=== PATIENT | female | born 1950 | race Caucasian/White ===

== ENCOUNTER → 2016-08-07 | Outpatient (CLI) | payer OTHER ==
[~2016-08-07] MED LIST: ALBUTEROL17 GM INH; AMBIEN PO; AMOXICILLIN PO; CELEXA PO; CELEXA20 MG PO; DYAZIDE 37.5/251 CAP PO; LASIX PO; LISINOPRIL PO; LISINOPRIL20 MG PO; LORTAB 7.5-5001 TAB PO; NO MEDICATIONS; ORUDIS75 M1 PO; PREDNISONE PO; TEMAZEPAM PO; ZYLOPRIM PO
--- NOTE | ~2016-08-07 | MY11 ---
[facility] A Service of [facility] RADIOLOGY TEXT RESULTS PATIENT: INGRID CURRY LOCATION: [facility] : 52 UNIT #: [id number] AGE: [address]: NUNO CONLEY MD (INT MED) SEX: F ORDER DR: [id number] [facility] [address] [place], [place] [address] [id number] O MR#: [id number] Acc #: [id number] NAME: INGRID CURRY : 1950 SEX: F STUDY DATE/TIME: 08/07/2016 12:50 UNIT: [facility] ROOM: STUDY DESCRIPTION: MY Mammogram Screening Dig Miles Attending Physician: Nuno Conley M.D. Ordering Physician: Nuno Conley M.D. Primary Care Physician: Nuno Conley M.D. MEDICAL IMAGING REPORT This report is preliminary unless electronic signature is present EXAM Digital screening mammogram 08/07/2016 [facility] HISTORY 66-year-old woman no risk elevation. Annual screen. COMPARISON 12/24/2011 FINDINGS Digital imaging of each breast was completed utilizing a two-view examination of each breast in craniocaudal and mediolateral-oblique projections. Review and interpretation of digital mammograms include a second review in conjunction with FDA-approved CAD device. There is a normal parenchymal presentation bilaterally consistent with the patient's age. There are no breast masses imaged and no parenchymal asymmetry is visualized. There are no suspicious microcalcifications and I see no focal architectural disturbance. IMPRESSION Negative screening digital mammogram. One-year followup recommended. Patients over the age of 40 are entered into a reminder system with target due date for the next mammogram. A result letter will also be sent to the patient. BIRADS: 1 Negative ADDENDUM Breast parenchyma is fatty replaced. Dictated by... Valente Montgomery M.D. [facility] A Service of [facility] RADIOLOGY TEXT RESULTS PATIENT: INGRID CURRY LOCATION: [facility] : 52 UNIT #: [id number] AGE: [address]: NUNO CONLEY MD (INT MED) SEX: F ORDER DR: THIS IS AN ELECTRONICALLY VERIFIED REPORT Valente Montgomery M.D. at 08/08/2016 8:18 AM JBB/to TD: 08/07/2016 15:52 JOB #: [id number] MEDICAL IMAGING REPORT Page 1 of 1 COPY
== END | disposition home or self-care (01) ==
LOC: CWCC 12:21
DX: Z12.31 Encounter for screening mammogram for malignant neoplasm of breast (principal); R92.8 Other abnormal and inconclusive findings on diagnostic imaging of breast
CPT/HCPCS: G0202